=== PATIENT | female | born 1945 | race Two or more races ===

== ENCOUNTER 2020-05-28 07:26 | Day surgery (SDC) | payer OTHER ==
[~2020-05-28 07:26] MED LIST: CALTRATE 600 +1 EACH PO; CIDAFLEX TABLE1 EACH PO; SYNTHROID75 MCG PO; VALSARTAN80 MG PO
== END 2020-05-28 15:50 | disposition home or self-care (01) ==
LOC: CIR.AMB 07:26
PROVIDERS: ATTEND Orthopaedic Surgery Hand Surgery
DX: G56.02 Carpal tunnel syndrome, left upper limb (principal); Z20.822 Contact with and (suspected) exposure to COVID-19

== ENCOUNTER 2020-06-18 05:16 | Day surgery (SDC) | payer OTHER | END 2020-06-18 13:55 | disposition home or self-care (01) | LOC: CIR.AMB 05:16 | PROVIDERS: ATTEND Orthopaedic Surgery Hand Surgery | DX: G56.01 Carpal tunnel syndrome, right upper limb (principal); Z20.822 Contact with and (suspected) exposure to COVID-19 ==